=== PATIENT | female | born 1975 | race Caucasian/White ===

== ENCOUNTER 2018-01-08 09:27 | Outpatient (REF) | payer BC, SELFPAY ==
[2018-01-08 13:18] LABS: Abs Immature Grans 0.01 k/cumm (0.0-0.09); Absolute Basophil Count 0.04 k/cumm (0.0-0.2); Absolute Eosinophil Count 0.06 k/cumm (0.0-0.7); Absolute Lymphocyte Count 1.84 k/cumm (1.2-3.4); Absolute Monocyte Count 0.64 k/cumm (0.11-0.7); Absolute Neutrophil Count 4.87 k/cumm (1.2-6.7); Basophils % 0.5; Eosinophils % 0.8; HCT 45.1 % (36.0-46.0); HGB 15.1 g/dL (12.0-15.5); Immature Grans % 0.1; Lymphocytes % 24.7; Mean Corp. HGB Concentration 33.5 g/dL (32.0-36.0); Mean Corpuscular Hemoglobin 31.1 pg (27.0-33.0); Mean Corpuscular Volume 92.8 fL (80-95); Mean Platelet Volume 10.9 fL (8.0-11.0); Monocytes % 8.6; Neutrophils % 65.3; Platelet Count 290 x1000/uL (130-400); RBC 4.86 m/cumm (4.00-5.20); RBC Distribution Width 13.1 % (11.7-14.6); White Blood Cell Count 7.46 k/cumm (4.4-10.8)
[2018-01-08 13:31] LABS: ALT 19 U/L (12-78); AST 15 U/L (15-37); Albumin 3.9 g/dL (3.4-5.0); Alkaline Phosphatase 90 U/L (46-116); Anion Gap 7.7 mmol/L (3-11); BUN 11 mg/dL (7-18); Bilirubin, Total 0.2 mg/dL (0.2-1.0); CO2 24.3 mmol/L (21.0-32.0); CREATININE 0.76 mg/dL (0.55-1.02); Chloride 105 mmol/L (98-107); Glucose 97 mg/dL (70-100); Potassium 4.5 mmol/L (3.5-5.1); Sodium 137 mmol/L (136-145); Total Protein 7.3 g/dL (6.4-8.2)
[2018-01-08 14:28] LABS: Bilirubin Negative (Negative); Blood Moderate (Negative); Clarity Clear; Glucose Negative (Negative); Ketones Negative (Negative); Leukocyte Esterase Negative (Negative); Nitrite Negative (Negative); Urobilinogen 0.2 EU/dL (Up TO 0.2)
[2018-01-08 14:35] LABS: Epithelial Cells Many HPF (Negative); RBC 0-2 (0-2); WBC Negative HPF (0-5)
[2018-01-08 14:36] LABS: Bacteria Moderate HPF (Negative); C & S Indicated? No; Casts Negative LPF (Negative); Crystals Few Calcium Oxalate HPF (Negative); Mucus Negative (Negative)
== END 2018-01-08 09:47 ==
LOC: NCHCN 09:27
PROVIDERS: PCP Family Medicine; Visit Provider Nurse Practitioner Family
DX: R31.9 Hematuria, unspecified (principal)
CPT/HCPCS: 80053; 81003; 81015; 85025

== ENCOUNTER 2018-01-09 09:05 | Outpatient (CLI) | payer BC, SELFPAY ==
--- NOTE | 2018-01-09 13:30 | DI.US_ITS ---
SYMPTOMS/DIAGNOSIS: HEMATURIA, R31.9, LOWER ABDOMINAL PAIN, ? NEPHROLITHIASIS RENAL ULTRASOUND: Routine examination was performed. The right kidney measures 9 cm long. No renal mass, calculus or obstruction is identified. There is normal blood flow to the right kidney. The left kidney measures 11.1 cm long. No renal mass, calculus or obstruction is identified. There is normal blood flow to the left kidney. The prevoid urinary bladder volume is 102 cc. The bladder wall appeared smooth. No intraluminal masses are seen. Both ureteral jets were visualized. Postvoid urinary bladder volume was 10 cc. Incidental note is made of a 3 cm simple cyst arising from the left ovary. IMPRESSION: 1. No evidence of nephrolithiasis or hydronephrosis. 2. Incidental note made of a 3 cm left ovarian simple cyst.
== END 2018-01-09 09:25 ==
PROVIDERS: PCP Nurse Practitioner Family; Visit Provider Nurse Practitioner Family
DX: R31.9 Hematuria, unspecified (principal); R10.32 Left lower quadrant pain; N83.292 Other ovarian cyst, left side
CPT/HCPCS: 76770

== ENCOUNTER 2018-02-10 08:03 | Emergency (ER) | payer BC, SELFPAY ==
[2018-02-10 08:24] VITALS: BP 131/78; PULSE 58; RESP 15; TEMP 36.5; O2SAT 100
--- NOTE | 2018-02-10 09:36 | DI.RAD_ITS ---
SYMPTOM/DIAGNOSIS: PAIN, TWISTED LEFT KNEE: Three views were obtained. No fracture is seen. LEFT ANKLE: Three views were obtained. The ankle mortise appears well maintained. No fracture is identified.
--- NOTE | 2018-02-10 10:25 | ED.GENADUL_ITS ---
Discharge Plan Disposition Patient Disposition: HOME Condition: Good Discharge Details Chief Complaint: Orthopedic Clinical Impression: Ankle sprain, Strain of left knee and leg Primary Care Provider: Sabrina Powers ED Provider: Vasquez Mahmood Home Meds and New Rx's Prescriptions: No Action norethindrone (contraceptive) [Ebonie-BE] 0.35 mg Tablet 0.35 mg PO DAILY RF: 0 Discharge Instructions Instructions: Ankle Sprain (ED), Muscle Strain (ED) Additional Instructions: Use ice and ibuprofen or naproxen for pain and welling. Stand Alone Forms: Work Release Referrals: Sabrina Powers [Primary Care Provider] - Return if symptoms worsen Discharge Data Discharge Date/Time-TO BE ENTERED AT DEPARTURE: 02/10/18 10:46 Medical Decision Making Plan to x-ray both knee and ankle. I suspect she has strained her knee and ankle. No impact injury reported. I did not see any effusion or fracture on x-ray or exam. Confirmed by radiology. Patient and apprised. I recommended purchasing a OTC neoprene sleeve. We provided a lace up ankle stabilizer and crutches. Use ibuprofen for the pain and swelling as well as ice. Return to ED as needed otherwise with pcp. Imaging Data Radiologic Study: Imaging: X-Ray (negative for fracture) My impression: no acute abnormality Radiologist's impression: Agreed no acute abnormality. HPI General Mode of arrival: wheelchair . Date/Time Provider Initiated Documentation: 02/10/18 08:48 . Limitations to Documentation: no limitations . Information obtained by: patient and family . History of Present Illness 42 year old F presents to the emergency department with the chief complaint of knee and ankle pain, described as moderate, Quality is described as aching and sharp, and is localized to the lower extremity (left). Patient reports no radiation. Patient started experiencing this day(s) (1) and it has been intermittent. Cold therapy improves symptom(s), Movement worsens symptoms . Patient notes no other symptoms.. HPI Narrative: 42 y/o female here with c/o left knee and ankle pain. She twisted her left knee after falling off a log while trying to get on her horse yesterday. She tells me there was only twisting injury not impact injury. She fell on her left side. Denies any other injury. Took 600mg of ibuprofen [facility]. Related Data Home Medications Medication Instructions Recorded Confirmed norethindrone (contraceptive) 0.35 mg PO DAILY 02/10/18 02/10/18 [Ebonie-BE] Allergies Allergy/AdvReac Type Severity Reaction Status Date / Time No Known Allergies Allergy Unverified 02/10/18 08:31 General Stated Complaint: Orthopedic ABBY: 4 Review of Systems Musculoskeletal Reports joint swelling, Denies numbness, Denies stiffness, Denies tingling and Reports other (c/o pain to left knee and ankle) Neurologic Denies numbness and Denies tingling PFSH Social History Smoking/Tobacco Use Status: Never Exam Extrem General: normal to inspection and full ROM (with pain) Left lower extremity: normal to inspection, full ROM (with pain. Difficulty with full extension but is able to do so with moderate pain), normal capillary refill, no joint enlargement and knee Details: normal to inspection, tenderness Location: of the popliteal fossa, of the medial joint line and of the lateral joint line, abnormal ROM Details: pain with active ROM and pain with passive ROM , knee ligament exam normal and Luis's Test Details: negative medially and laterally; no swelling, no ecchymosis, no crepitus, no deformity and no unusual warmth; no edema Knee images: 2 1. pain 2. pain Ankle/foot/toe images: 2 1. pain 2. pain Course Vital Signs Temperature 36.5 C 02/10/18 08:24 Pulse 58 L 02/10/18 08:24 Respiratory Rate 15 02/10/18 08:24 Blood Pressure 131/78 02/10/18 08:24 Pulse Oximetry 100 02/10/18 08:24 Temperature 36.5 C 02/10/18 08:24 Temperature Source Temporal Artery Scan 02/10/18 08:24 Pulse 58 L 02/10/18 08:24 Respiratory Rate 15 02/10/18 08:24 Respiratory Effort Non-Labored 02/10/18 08:30 Blood Pressure 131/78 02/10/18 08:24 Blood Pressure Position Supine 02/10/18 08:24 Pulse Oximetry 100 02/10/18 08:24 Oxygen Delivery Method Room Air 02/10/18 08:24 Oxygen Flow Rate 0 02/10/18 08:24 Pain Level 3 02/10/18 08:32
== END 2018-02-10 10:46 | disposition home or self-care (01) ==
PROVIDERS: Emergency Provider Nurse Practitioner Family; PCP Nurse Practitioner Family
DX: S93.401A Sprain of unspecified ligament of right ankle, initial encounter (principal); S86.912A Strain of unspecified muscle(s) and tendon(s) at lower leg level, left leg, initial encounter; W17.89XA Other fall from one level to another, initial encounter
CPT/HCPCS: 73562; 99284; 73610; E0114; L1902

== ENCOUNTER 2018-04-14 00:28 | Outpatient (CLI) | payer BC, SELFPAY ==
--- NOTE | 2018-04-14 07:38 | DI.MRI_ITS ---
SYMPTOM/DIAGNOSIS: LEFT KNEE INTERNAL DERANGEMENT LIKELY MENISCUS TEAR M23.92 MRI LEFT KNEE: Routine examination was performed. There is no evidence of a meniscal tear. The medial and lateral collateral ligaments, extensor mechanism, medial and lateral retinaculum and popliteus tendon are intact. The posterior collateral ligament is intact. There is some deformity and laxity of the mid-portion of the anterior cruciate ligament suspicious for a tear There is an ovoid density seen superior to the anterior cruciate ligament and may represent a loose body. Ligamentous component cannot be excluded. There is mild marrow edema seen in both the distal femur and the proximal tibia likely reflecting contusion. The articular cartilage appears intact. There is a small to moderate size joint effusion present. No significant popliteal cyst is seen. The muscles show normal signal and size. No significant muscular fatty atrophy is identified. IMPRESSION: 1. Laxity and deformity involving the anterior cruciate ligament suspicious for at least a partial tear. 2. Ovoid hypointense region superior to the anterior cruciate ligament. This may represent ligamentous tissue or loose body. A CT scan of the knee should be considered for further evaluation.
== END 2018-04-14 00:48 ==
PROVIDERS: PCP Nurse Practitioner Family; Visit Provider Physician Assistant
DX: M23.92 Unspecified internal derangement of left knee (principal); M25.562 Pain in left knee; M25.462 Effusion, left knee
CPT/HCPCS: 73721

== ENCOUNTER 2018-05-01 11:49 | Day surgery (SDC) | payer BC, SELFPAY ==
[2018-05-01 12:05] VITALS: BP 150/97; PULSE 74; RESP 16; TEMP 36.6; O2SAT 100
[2018-05-01] MEDS: Lactated Ringers 1,000 ML 80 ML IV (12:43)
--- NOTE | 2018-05-01 14:45 | PDOC.DSDIS_ITS ---
Discharge Plan Disposition Patient Disposition: HOME Condition: Good Discharge Details Reason For Visit: KNEE ARTHROSCOPY W/FB REMOVAL Attending Provider: Jeffrey Power Primary Care Provider: Sabrina Powers Home Meds and New Rx's Prescriptions: New hydrocodone-acetaminophen 5-325 mg tablet 1 tab PO Q4H PRN (Reason: pain) Qty: 10 RF: 0 ibuprofen 600 mg tablet 600 mg PO TID PRNQty: 60 RF: 3 acetaminophen 500 mg capsule 500 mg PO Q6H PRN (Reason: pain) Qty: 60 RF: 3 Continued norethindrone (contraceptive) [Ebonie-BE] 0.35 mg Tablet 0.35 mg PO DAILY RF: 0 Discharge Instructions Stand Alone Forms: Lubna Lira (JOSE ELIAS), [facility]ann[facility] Knee Arthroscopy Referrals: Jeffrey Power MD [ [facility] STAFF PHYSICIAN] - Equipment/Supplies: Partial Weight Bearing Crutches Activity:: Elevate Remove Dressings/Wound Care:: 72 hours Shower/Bathe:: 72 hours Diet:: As Tolerated Discharge Orders Discharge Orders: Discharge Order (Routine); Ordered 05/01/18 Ordered By: Jeffrey Power DS: Diagnosis Discharge Diagnosis (1) Internal derangement of left knee: Status: Acute
[2018-05-01] MEDS: Bupivacaine 0.5% Pres-Free 30 ML VIAL (15:07)
[2018-05-01 15:30] VITALS: BP 116/60; PULSE 54; RESP 16; TEMP 36.4; O2SAT 97
[2018-05-01 15:35] VITALS: BP 110/67; PULSE 48; RESP 15; TEMP 36.6; O2SAT 98
[2018-05-01 15:40] VITALS: BP 111/63; PULSE 49; RESP 15; TEMP 36.6; O2SAT 98
[2018-05-01] MEDS: fentaNYL 100 MCG/2 ML VIAL IVP ×2 (15:45→15:50)
[2018-05-01 15:55] VITALS: BP 129/70; PULSE 50; RESP 13; TEMP 36.6; O2SAT 96
[2018-05-01] MEDS: HYDROcodone 5/Acetaminophen 325 TAB PO (16:29)
[2018-05-01 16:45] VITALS: BP 116/59; PULSE 50; RESP 16; TEMP 35.9; O2SAT 96
--- NOTE | 2018-05-02 17:12 | W.PM.OP ---
Date of service: 05/01/18 Time of Service: 17:12 Operative Note DATE OF PROCEDURE: 05/01/18 PRE-OP DIAGNOSIS: Left knee foreign body, flexion contracture POST-OP DIAGNOSIS: other (Left knee ACL tear with soft tissue impingement) PROCEDURE: Left knee arthroscopic synovectomy and debridement SURGEON: Jeffrey Power ANESTHESIA: GETA ESTIMATED BLOOD LOSS: 0 PATHOLOGY: none sent TOURNIQUET TIME: 0 COMPLICATIONS: None Patient was transported to: PACU Patient's condition: stable Indications: Adrianna is a 42-year-old who had an awkward fall when she was trying to get on a horse from a pile of logs. This twisting mechanism cause significant pain and swelling about her knee. She try to treat this conservatively. She is having persistent pain. While some of the ability to walk and ambulate has gotten better she has been unable to fully extend the knee. She is unable to tolerate any twisting type mechanisms to the knee. She denies instability. Given the failure of treatment options I did order an MRI which revealed what appeared to be a loose body within the notch of the knee. She also had an ACL tear. There is no clear meniscal pathology. Given the lack of progress and the flexion contracture, inability to reach extension, with MRI findings I offered a diagnostic arthroscopy with removal of loose body and debridement as indicated. I reviewed the risk of the procedure to include bleeding, infection, pain, stiffness, damage to nerves and vessels, damage to muscles and tendons, need for repeat procedures, blood clot. Despite these risks, she elected to proceed. Findings: A diagnostic arthroscopy was performed with the following findings: Throughout the anterior knee both medially and laterally there was notable inflammatory change which is quite hypertrophic. Suprapatellar Pouch: Mild inflammatory changes, no loose bodies Medial Compartment: No meniscal tearing, intact meniscal root, no significant chondromalacia or signs of arthritis, no loose bodies Notch: There is a nearly complete ACL tear. The ACL was torn off of the femoral origin and was flipped onto itself and impinging over the lateral notch. There is a likely small band of posterior lateral bundle still attached. PCL was intact. Lateral Compartment: No meniscal tear, intact meniscal root, no significant chondromalacia or signs of arthritis, no loose bodies Patellofemoral Compartment: No significant chondromalacia, no apparent patellar maltracking Procedure Description: Adrianna was greeted in the preoperative holding area where the correct side was identified and marked. The consent was reviewed with the patient and signed. The history and physical was updated. All questions were answered. She was taken back to the operating room. The patient was placed into the supine position on the operating room table. A nonsterile tourniquet was placed high onto the leg the. All bony prominences were well padded. Prophylactic antibiotics in the form of cefazolin were administered. The left leg was then prepped with Chloraprep and draped in a standard fashion with stockinette and extremity drape. A timeout to confirm correct identity, side and site, procedure, allergies, anesthesia, and medical concerns was performed. The leg was placed into a pneumatic leg cervantes, [id number]. A standard lateral portal was made at the lateral border of the patella tendon in line with the inferior pole of the patella, soft spot. The skin and deep tissue was incised sharply and the blunt trochar was inserted atraumatically. A diagnostic arthroscopy was performed and the findings are listed above. The suprapatellar pouch had mild inflammatory changes. There was significant hypertrophic synovitis seen anteriorly in the knee and within the medial lateral gutters. The patellofemoral articulation showed no articular damage as well as good tracking. The lateral gutter had no loose bodies and the medial gutter had no loose bodies. The knee was brought into some valgus stress in extension to open the medial compartment. A medial portal was made, localized by a spinal needle. The portal was created with an #11 blade through skin and capsule under direct visualization avoiding any meniscal injury. A probe was then inserted into the medial compartment. The medial compartment was fully inspected. The chondral surface of the tibia showed no significant chondromalacia and the surface of the femur showed no significant chondromalacia. The medial meniscus had no meniscal tear. The notch was then inspected which showed a torn ACL and an intact PCL. The majority the ACL was torn cleanly off of the femoral origin and was flipped onto itself. There is a cary of contusion to the lateral aspect of the notch where the ACL was resting and showed signs of impingement as it reached extension. There was a small band of posterior lateral bundle still attached. The leg was then brought into a figure of 4 position. The lateral compartment was fully inspected with the arthroscope and a probe. The chondral surface of the lateral femur showed no significant chondromalacia. The chondral surface of the lateral tibia showed no significant chondromalacia. The lateral meniscus had no meniscal tear. The stump of the ACL was then debrided down to a stable base. The knee was inspected in full extension to show there were no signs of impingement. The hypertrophic synovitis seen within the knee, primarily anteriorly, was also debrided down. The arthroscope was brought back into the suprapatellar pouch and the leg was in full extension. The knee was thoroughly irrigated with the arthroscopic fluid on high flow and pressure. Inflow was stopped and excess fluid was removed. The wounds were closed with 4-0 Nylon. They were dressed with Xeroform, 4x4 gauze, ABD pad, Kerlix and an TERESA wrap. A cryo-cuff was applied. The patient tolerated the procedure well and was returned to the Same Day Surgery area in a stable condition suffering no known complication.
== END 2018-05-01 17:30 | disposition home or self-care (01) ==
PROVIDERS: PCP Nurse Practitioner Family; Visit Provider Student in an Organized Health Care Education/Training Program
PROC: (CPT 29870; principal; 2018-05-01 13:00)
DX: S83.512A Sprain of anterior cruciate ligament of left knee, initial encounter (principal); X50.1XXA Overexertion from prolonged static or awkward postures, initial encounter; Y93.52 Activity, horseback riding; M25.862 Other specified joint disorders, left knee; M67.262 Synovial hypertrophy, not elsewhere classified, left lower leg
CPT/HCPCS: 29888; 29875; 81025; J0690; J1100; J1885; J2250; J2405; J3010

== ENCOUNTER 2022-06-27 01:14 | Outpatient (CLI) | payer BC, SELFPAY ==
--- NOTE | 2022-06-27 | DI.US_ITS ---
Exam(s) MAMMO DIAGNOSTIC BI US BREAST LT LIMITED EXAM: MAMMO DIAGNOSTIC BI and U/S breast LT limited CLINICAL HISTORY: BREAST LUMP OR MASS LEFT BREAST N63.0. TECHNIQUE: Craniocaudal and mediolateral oblique Full Field Digital Mammography views with Computer Aided Diagnosis followed by Tomosynthesis and left breast ultrasound. COMPARISON: None. FINDINGS: Mammography/Tomosynthesis: Masses/Architectural Distortion: None seen. Microcalcifictions: No suspicious pleomorphic-type are seen. Skin Thickening/Nipple Retraction: None. Limited left breast US: Echotexture: Normal appearance of the glandular tissue. Shadowing: No suspicious foci. Cyst: None. Solid lesions: None seen. Ductal dilation: None. IMPRESSION: 1. No evidence of malignancy is noted. 2. Unless there is more urgent need, follow-up screening mammography is recommended, as per [employer] [place] [employer] guidelines. 3. The findings were discussed with the patient on the date of the examination. BI-RADS Category 1 - Negative Breast Density - Category B - Scattered areas of fibroglandular density Breast density Category C or D implies that the patient has dense breast tissue. Dense breast tissue can make it harder to find cancer on a mammogram. Dense breast tissue is also associated with an incr eased risk of breast cancer. This information about the result of the mammogram report was provided to the patient to raise their awareness. Use this report when you speak with the patient about their risks for breast cancer, which includes their family history. At that time, you may recommend additional screening tests (Ultrasoun d or MRI) as these tests may add significant information. A negative radiographic report should not delay biopsy if a dominant or clinically suspicious mass is present. Up to ten percent of cancers are not identified on mammography. A negative report may reinforce clinical impression. Adenosis and dense breasts may obscure an underlying neoplasm. False positive reports average 6 to 10%. Patient will receive a letter notifying them of these results.
== END 2022-06-27 01:34 ==
PROVIDERS: PCP Nurse Practitioner Family; Visit Provider Nurse Practitioner Family
DX: N63.20 Unspecified lump in the left breast, unspecified quadrant (principal)
CPT/HCPCS: 76642; 77062; 77066; G0279